=== PATIENT | male | born 1965 | race Two or more races ===

== ENCOUNTER → 2020-10-04 | Outpatient (CLI) | payer OTHER ==
--- NOTE | 2020-10-04 18:20 | RAD ---
EXAM: XR LUMBAR SPINE 2-3V 10/04/2020 1:27 PM CLINICAL INDICATION: Low back pain, disability determination COMPARISON: None TECHNIQUE: 2 views of the lumbar spine FINDINGS: The bones are diffusely demineralized. No acute fracture. Alignment is normal. There are b ridging syndesmophytes throughout the lumbar spine. Disc spaces are maintained. Probable fusion of th e sacroiliac joints. IMPRESSION: Findings suspicious for ankylosing spondylitis with bridging syndesmophytes throughout th e lumbar spine and probable fusion of the sacroiliac joints. Electronically signed by: Yuridia Lerma MD (10/04/2020 6:18 PM) [id number]
== END ==
LOC: RAD 13:10
PROVIDERS: ATTEND Family Medicine
DX: Z02.71 Encounter for disability determination (principal); M54.5 Low back pain
CPT/HCPCS: 72100